=== PATIENT | male | born 1975 | race Caucasian/White ===

== ENCOUNTER 2019-02-09 10:12 | Emergency (ER) | payer OTHER ==
[~2019-02-09] VITALS: Ht 200.7 cm; Wt 108.9 kg
[2019-02-09 10:42] LABS: ABSOLUTE NEUTROPHILS 8.5 thou/uL (1.4-8.2); BASOPHILS 0.5 % (0.0-2.0); EOSINOPHILS 0.6 % (0.0-3.0); HEMATOCRIT 48.3 % (42.0-52.0); HEMOGLOBIN 16.6 gm/dL (14.0-18.0); LYMPHOCYTES 13.8 % (24.0-44.0); MCHC 34.4 g/dL (28.0-37.0); MCV 96.1 fL (80.0-100.0); MONOCYTES 4.8 % (1.0-8.0); PLATELET COUNT 370 thou/uL (150-400); POLYS 80.3 % (36.0-66.0); RBC 5.02 mil/uL (4.50-6.00); RDW 15.6 % (10.5-14.5); WBC 10.6 thou/uL (4.0-11.0)
[2019-02-09 10:51] LABS: CREATININE 1.1 mg/dL (0.7-1.3); POTASSIUM 3.8 mmol/L (3.5-5.1)
[2019-02-09 11:17] LABS: APTT 27.9 Seconds (24.5-32.8); INR 1.1; PROTIME 11.4 Seconds (9.3-11.4)
[2019-02-09 14:38] VITALS: BP 128/65
== END 2019-02-09 14:39 | disposition home or self-care (01) ==
LOC: ER 10:12
PROVIDERS: Emergency Medicine
DX: R20.2 Paresthesia of skin (principal); F17.210 Nicotine dependence, cigarettes, uncomplicated